=== PATIENT | female | born 1990 | race Caucasian/White ===

== ENCOUNTER 2016-05-18 17:40 | Inpatient (IN) ==
--- NOTE | 2016-05-18 18:09 | Emergency Department Note ---
Disposition Clinical Impression: Cellulitis Qualifiers: Site of cellulitis: buttock Qualified Code(s): L03.317 - Cellulitis of buttock Disposition: Admitted As Inpatient Condition: Good Referrals: NO,PCP [Primary Care Provider] - Forms: ED Satisfaction Letter Time of Disposition: 20:24 Back Pain HPI - General Chief Complaint: ED Back Pain/Injury Stated Complaint: Pain in tailbone Time Seen by Provider: 05/18/16 17:59 Source: patient, family Mode of arrival: ambulatory Limitations: no limitations Nursing Notes Reviewed: Yes Vital Signs Reviewed: Yes - History of Present Illness HPI Narrative: 25-year-old female comes in with coccyx region pain without injury. States because last couple of days. Chills or fevers. Pt Subjective Complaint: back pain Onset (ago): day(s) Duration: constant Similar Symptoms Previously: No Location: sacrum (6 region) Pain Severity: moderate Quality: aching Radiation: none Improves with: none Worsens with: movement, other (Palpation) - Related Data Allergies Allergy/AdvReac Type Severity Reaction Status Date / Time No Known Allergies Allergy Verified 05/18/16 17:42 Constitutional: Denies: fever, chills, weakness, weight change Eyes: Denies: eye pain, eye discharge, vision change ENT ED: Denies: ear pain, throat pain, dental pain, hearing loss, epistaxis, congestion, dysphagia Cardiovascular: Denies: chest pain, palpitations, dyspnea on exertion, edema, syncope Respiratory: Denies: cough, dyspnea, wheezes, hemoptysis, stridor Gastrointestinal: Denies: abdominal pain, nausea, vomiting, diarrhea, constipation, hematemesis, melena, hematochezia Genitourinary: Denies: dysuria, frequency, hematuria, discharge Musculoskeletal: Reports: back pain. Denies: neck pain, arthralgia, myalgia Integumentary: Denies: rash, abrasion, lesions Neurological: Denies: headache, weakness, numbness, paresthesias, confusion, abnormal gait, vertigo Psychiatric: Denies: anxiety, depression, suicidal thoughts, homicidal thoughts , auditory hallucinations, visual hallucinations Endocrine: Denies: fatigue Hematological/Lymphatic: Denies: easy bleeding, easy bruising Allergic/Immunologic: Denies: facial swelling, urticaria Past Medical History - Past Medical History Medical history: Reports: no medical history Psychiatric history: Reports: no psych history - Social History Smoking Status: Never smoker Smokeless Tobacco Status: No Alcohol use: Reports: none Drug use: Reports: none Physical Exam - General Limitations: no limitations General appearance: alert, in no apparent distress - Head Head exam: atraumatic, normocephalic, normal inspection - Eye Eye exam: Present: normal appearance, PERRL, EOMI - ENT ENT exam: normal exam, normal oropharynx, mucous membranes moist - Neck Neck exam: Present: normal inspection, full ROM, trachea midline - Chest Chest inspection: Present: normal inspection, symmetric chest wall rise - Respiratory Respiratory exam: Present: normal lung sounds bilaterally - Cardiovascular Cardiovascular exam: Present: regular rate, normal rhythm, normal heart sounds - Abdominal Exam Abdominal exam: Present: soft, Non-Tender. Absent: tenderness, distention, guarding, rebound, rigidity - Rectal Exam Service Learning Coordinator present during exam: Yes Rectal exam: Present: tenderness (Pilonidal region with no redness and no palpable fluctuance) - Extremities Exam Extremities exam: Present: normal inspection, full ROM. Absent: tenderness, pedal edema - Expanded Lower Extremity Exam Neurovascular/Tendon exam: Absent: motor deficit, sensory deficit, tendon deficit Gait: observed and normal - Back Exam Back exam: Present: normal inspection, full ROM. Absent: tenderness - Neurological Exam Neurological exam: Present: alert, oriented X3 - Psychiatric Psychiatric exam: Present: normal affect, normal mood - Skin Skin exam: Present: warm, dry, intact, normal color Course - Consultations Consultation #1: Discussed with , IV antibiotics and to the hospitalist. Time: 20:26 Consultation #2: Discussed with Dr. Aceves, admit. Time: 20:27 Vital Signs Temperature 98.4 F 05/18/16 17:43 Pulse Rate 112 05/18/16 17:43 Respiratory Rate 18 05/18/16 17:43 Blood Pressure 144/90 05/18/16 17:43 O2 Sat by Pulse Oximetry 99 05/18/16 17:43 Temperature 98.4 F 05/18/16 17:43 Pulse Rate 112 05/18/16 17:43 Respiratory Rate 18 05/18/16 17:43 Blood Pressure 144/90 05/18/16 17:43 O2 Sat by Pulse Oximetry 99 05/18/16 17:43 Back Pain/Injury - Lab Data Result diagrams: 05/18/16 18:17 05/18/16 18:17 Lab Results 05/18/16 05/18/16 05/18/16 Range/Units 18:17 18:17 18:17 WBC 13.9 H (4.3-11.1) K/mcL RBC 4.48 (3.82-4.97) M/mcL Hgb 13.2 (11.5-15.4) g/dL Hct 39.3 (35.3-44.9) % MCV 87.7 (83.0-100.0) fL MCH 29.5 (28.0-33.3) pg MCHC 33.6 (31.6-35.5) g/dL RDW 11.8 (11.5-14.5) % Plt Count 276 (140-400) K/mcL MPV 10.6 (9.4-12.4) fL Immature Gran % 0.3 (0-4) % Seg Neutrophils % 75.2 % Lymphocytes % 14.4 % Monocytes % 9.6 % Eosinophils % 0.3 % Basophils % 0.2 % Neutrophils # 10.4 H (1.6-8.9) K/mcL Lymphocytes # 2.0 (0.6-4.6) K/mcL Monocytes # 1.3 (0.0-1.3) K/mcL Eosinophils # 0.0 (0.0-0.6) K/mcL Basophils # 0.0 (0.0-0.2) K/mcL Sodium 141 (136-145) mEq/L Potassium 4.1 (3.5-4.5) mEq/L Chloride 107 (98-109) mEq/L Carbon Dioxide 23 (19-29) mEq/L BUN 17 (7-20) mg/dL Creatinine 0.69 (0.57-1.11) mg/dL Est GFR ( Amer) > 60 (> 60) Est GFR (Non-Af Amer) > 60 (> 60) BUN/Creatinine Ratio 25 (6-26) Glucose 108 H (70-99) mg/dL Calculated Osmolality 294 (280-300) Calcium 9.6 (8.6-10.8) mg/dL Serum , Qual Negative (Negative) - Radiology Data Radiology results reviewed: Yes I reviewed the patient's radiology results. Pelvis CT 05/18/16 18:04 IMPRESSION: 6.6 x 1.7 x 1.3 cm phlegmonous collection within the deep soft tissues extending from the superior margin of the gluteal cleft to the inferior tip of the coccyx. This could represent a developing deep decubitus abscess. There is no definite osseous destruction or lucency to suggest osteomyelitis. However, if osteomyelitis remains of clinical concern, suggest more detailed characterization with a follow-up sacral MRI without and with contrast. D/ / Shaw Jalloh MD / Shaw Jalloh MD Interpreting Provider: Shaw Jalloh MD
[2016-05-18 18:31] LABS: Basophils % 0.2 %; Eosinophils % 0.3 %; Hematocrit 39.3 % (35.3-44.9); Hemoglobin 13.2 g/dL (11.5-15.4); Immature Granulocytes % 0.3 % (0-4); Lymphocytes % 14.4 %; Mean Corpuscular HGB Conc 33.6 g/dL (31.6-35.5); Mean Corpuscular Hemoglobin 29.5 pg (28.0-33.3); Mean Corpuscular Volume 87.7 fL (83.0-100.0); Mean Platelet Volume 10.6 fL (9.4-12.4); Monocytes # 1.3 K/mcL (0.0-1.3); Monocytes % 9.6 %; Neutrophils # 10.4 K/mcL (1.6-8.9); Platelet Count 276 K/mcL (140-400); Red Blood Count 4.48 M/mcL (3.82-4.97); Red Cell Distribution Width 11.8 % (11.5-14.5); Segmented Neutrophils % 75.2 %
[2016-05-18 18:43] LABS: BUN/Creatinine Ratio 25 (6-26); Blood Urea Nitrogen 17 mg/dL (7-20); Calcium 9.6 mg/dL (8.6-10.8); Carbon Dioxide 23 mEq/L (19-29); Chloride 107 mEq/L (98-109); Glucose 108 mg/dL (70-99); Osmolality,Calculated 294 (280-300); Potassium 4.1 mEq/L (3.5-4.5); Sodium 141 mEq/L (136-145); eGFR For African Americans > 60 (> 60); eGFR For Non-African Americans > 60 (> 60)
[2016-05-18] MEDS ORDERED: Piperacillin/Tazobactam 3.375 GM in D5% in Water (Mini-Bag+) 100 ML IVPB ONE (20:22)
[2016-05-18] MEDS ORDERED: Vancomycin 1,000 MG in D5% in Water 250 ML IVPB ONE (20:22)
[2016-05-18] MEDS ORDERED: Ondansetron 4 MG/2 ML VIAL IVP ONE (20:26)
[2016-05-18] MEDS ORDERED: *HR* HYDROmorphone (PF) 1 MG/ML SYRINGE IVP ONE (20:26)
[2016-05-19] MEDS: 0.9 % Sodium Chloride 1,000 ML IVC SCH ×2 (00:05→15:42)
[2016-05-19] MEDS ORDERED: *HR* HYDROmorphone (PF) 1 MG/ML SYRINGE IVP ONE (01:38)
--- NOTE | 2016-05-19 03:28 | Internal Med History&Physical ---
<Devyn Hoover - Last Filed: 05/19/16 03:35> Date of Encounter: 05/19/16 Time of Encounter: 03:00 Assessment and Plan (1) Abscess Current visit: Yes Status: Acute Phlegmous collection of fluid found in the deep soft tissues that was suggestive for abscess, overlying this area is an area of erythema and warmth. Patient denies precipitating cause of potential abscess. Patient does report significant amount of pain. Patient has been afebrile since admission, not tachypneic, slightly elevated white blood count of 13.9, and tachycardia is likely due to patient pain. She does have source of infection, with attribution of patient tachycardia to pain she is likely not septic. We will continue empiric antibiotics of Zosyn and vancomycin Consults Gen. surgery for assistance in management in patient potential abscess Pain control with acetaminophen, Toradol, Dilaudid Tylenol for potential fever Zofran for nausea Make patient nothing by mouth until assessment surgery Maintenance fluid 100 mL an hour (2) Cellulitis Current visit: Yes Status: Acute Area of erythema and warmth overlying area of pain. CT examination of her pelvis demonstrated fluid collection deep to area of cellulitis. Plan as above Qualifiers: Site of cellulitis: buttock Qualified Code(s): L03.317 - Cellulitis of buttock (3) DVT prophylaxis Current visit: Yes Status: Acute Encouraged patient ambulation Internal Medicine - H&P: HPI Chief complaint: Painful area on buttocks Admitted From: Home Plans for Post Hospital Care: Home History of present illness: Ms. Lopez is a 25 year old female with no significant medical history who presents to [facility] because of continued and worsening pain in her coccyx region. She reports that the discomfort began last Sunday (05/14/16) and began as a slight discomfort in her gluteal cleft in the coccyx region. She said she woke up in pain, she states she has never had anything like this before it without pain medication since 11/28 in severity. She states in the last week it has been waking her from sleep, preventing her from getting a good night sleep. She denies any particular precipitating factor, but does state that she has recently increased her amount of exercise. She states that she has been taking up to 600 mg ibuprofen 8 times daily in the last week in order to help her control pain, but she came in because she was no longer able to. She states the pain is exacerbated by any pressure put on the area, sitting, lying down, or touch. She denies systemic symptoms denying fever/chills, and reporting the only nausea she has his episodes of pain. She denies diaphoresis, denies shortness of breath, denies abdominal pain, denies pain with bowel movements. Past Med Surg Social Fam HX - Past Medical History Medical history: no medical history Psychiatric history: no psych history - Past Surgical History Surgical History: non-contributory (Tonsils and adenoids removed) - Social History Smoking Status: Never smoker Smokeless Tobacco Status: No Alcohol use: none Drug use: none - Family History Mother Living Status: Still Living Hx Family Musculoskeletal Disorders: Yes (Knee Problems) Sister Hx Family Cancer: Yes (Ovarian) Paternal Hx Family Endocrine Disorder: Yes (Diabetes mellitus) Internal Medicine - H&P: Meds No Known Home Drugs 05/18/16 [History] Allergies No Known Allergies Allergy (Verified 05/18/16 17:42) - Constitutional Constitutional: no chills, no fever(s), no weakness - EENT Eyes: no change in vision, no loss of vision - Cardiovascular Cardiovascular ROS IM: no chest pain, no diaphoresis, no dyspnea, no lightheadedness, no palpitations, no syncope - Respiratory Respiratory: no cough, no dyspnea, no wheezing, no excessive phlegm production - Gastrointestinal Gastrointestinal: no abdominal pain, no constipation, no diarrhea, no hematemesis, no hematochezia, no melena, no nausea, no vomiting - Genitourinary Genitourinary: no dysuria, no hematuria - Musculoskeletal Musculoskeletal ROS IM: no numbness, no tingling - Integumentary Integumentary IM: as per HPI, erythema, no rash, no unusual bruising - Neurological Neurological ROS: no confusion, no convulsions, no focal weakness, no numbness, no tingling, no tremor(s) - Constitutional Vitals: Temp Pulse Resp BP Pulse Ox 99.1 F 118 15 111/61 100 05/19/16 00:59 05/19/16 00:59 05/19/16 00:59 05/19/16 00:59 05/19/16 00:59 Exam: General: Cooperative, pleasant, no acute distress, alert and oriented 3, answers questions appropriately Head: Normocephalic, atraumatic Eye: Conjunctiva pink, sclera anicteric, EOMI, PERRL Neck: Supple, trachea midline, mucosa moist Respiratory: No accessory muscle usage, clear to auscultation bilaterally, no wheezes/rhonchi/rales appreciated Cardiovascular: Tachycardia, S1 and S2 present, no murmurs/rubs/gallops/clicks appreciated GI/abdominal: Nondistended, nontender, soft, normal bowel sounds, no peritoneal signs Extremities: No calf tenderness, noncyanotic, no pedal edema appreciated, warm, lower extremity pulses palpable and symmetrical, area of erythema noted in superior portion of patient gluteal cleft, no fluid collection appreciated, no fluctuance palpated, no masses or areas of swelling identified Neurological: Alert and oriented 3, no facial droop, no focal deficits Skin: Dry, intact, normal color Internal Med - H&P Results - Labs CBC & Chem 7: 05/18/16 18:17 05/18/16 18:17 - Impressions Impressions Pelvis CT 05/18/16 18:04 IMPRESSION: 6.6 x 1.7 x 1.3 cm phlegmonous collection within the deep soft tissues extending from the superior margin of the gluteal cleft to the inferior tip of the coccyx. This could represent a developing deep decubitus abscess. There is no definite osseous destruction or lucency to suggest osteomyelitis. However, if osteomyelitis remains of clinical concern, suggest more detailed characterization with a follow-up sacral MRI without and with contrast. D/ / 05/18/2016 20:14:59 Shaw Jalloh MD / Gretchen Lopez Interpreting Provider: Shaw Jalloh MD <Moe Cunningham - Last Filed: 05/19/16 04:55> Date of Encounter: 05/19/16 Internal Medicine - H&P: HPI History of present illness: Ms. Lopez is a 25 year old female All Systems PM: A 10-system review of systems was performed and is negative for pertinent findings except as documented above in the HPI. - Constitutional Vitals: Temp Pulse Resp BP Pulse Ox 98.4 F 101 17 115/67 96 05/19/16 04:27 05/19/16 04:27 05/19/16 04:27 05/19/16 04:27 05/19/16 04:27 Internal Med - H&P Results - Labs CBC & Chem 7: 05/18/16 18:17 05/18/16 18:17 - Attending Attestation I examined this patient and my medical decision-making was reviewed with the SEED CLEANING MANAGER/PA/Advanced Practice Nurse/Resident Physician. I agree with the documented findings, disposition and treatment plan as described except to the extent set forth below. Agree with DR. Hoover. Cellulitis and abscess in a young female patient otherwise without comorbidities. continue broad spectrum antibiotics. Evaluation by surgical team. D/W patient and her .
[2016-05-19] MEDS ORDERED: Ketorolac 30 MG/ML VIAL IVP PRN (03:30)
[2016-05-19] MEDS ORDERED: Acetaminophen 325 MG TABLET PO PRN (03:30)
[2016-05-19] MEDS ORDERED: Naloxone 0.4 MG/ML INJ IVP PRN (03:30)
[2016-05-19] MEDS ORDERED: Ondansetron 4 MG/2 ML VIAL IVP PRN (03:30)
[2016-05-19] MEDS ORDERED: *HR* HYDROmorphone (PF) 1 MG/ML SYRINGE IVP PRN (03:30)
[2016-05-19] MEDS ORDERED: Melatonin 3 MG TABLET PO PRN (03:35)
[2016-05-19] MEDS ORDERED: Vancomycin 1,500 MG in D5% in Water 250 ML IVPB SCH ×2 (05:00→06:00)
[2016-05-19 06:03] LABS: Basophils % 0.2 %; Eosinophils % 0.1 %; Immature Granulocytes % 0.5 % (0-4); Lymphocytes # 1.3 K/mcL (0.6-4.6); Lymphocytes % 10.1 %; Mean Corpuscular HGB Conc 33.8 g/dL (31.6-35.5); Mean Corpuscular Hemoglobin 29.3 pg (28.0-33.3); Mean Corpuscular Volume 86.5 fL (83.0-100.0); Mean Platelet Volume 10.7 fL (9.4-12.4); Monocytes # 1.3 K/mcL (0.0-1.3); Monocytes % 10.2 %; Neutrophils # 9.9 K/mcL (1.6-8.9); Platelet Count 215 K/mcL (140-400); Red Blood Count 3.93 M/mcL (3.82-4.97); Red Cell Distribution Width 11.9 % (11.5-14.5); Segmented Neutrophils % 78.9 %
[2016-05-19 06:04] LABS: Hemoglobin 11.5 g/dL (11.5-15.4)
[2016-05-19 06:14] LABS: BUN/Creatinine Ratio 16 (6-26); Blood Urea Nitrogen 12 mg/dL (7-20); Calcium 8.8 mg/dL (8.6-10.8); Carbon Dioxide 25 mEq/L (19-29); Chloride 104 mEq/L (98-109); Glucose 109 mg/dL (70-99); Osmolality,Calculated 282 (280-300); Potassium 3.6 mEq/L (3.5-4.5); Sodium 136 mEq/L (136-145); eGFR For African Americans > 60 (> 60); eGFR For Non-African Americans > 60 (> 60)
[2016-05-19] MEDS: Piperacillin/Tazobactam 3.375 GM in D5% in Water (Mini-Bag+) 100 ML IVPB SCH ×3 (09:15→23:55)
--- NOTE | 2016-05-19 09:49 | General Surgery Consult Note ---
<Bob Lopez - Last Filed: 05/19/16 10:12> Date of Encounter: 05/19/16 Time of Encounter: 09:47 Assessment and Plan (1) Phlegmon Status: Acute 6.6 x 1.7 x 1.3 cm phlegmonous collection within the deep soft tissues extending from the superior margin of the gluteal cleft to the inferior tip of the coccyx. She is afebrile and has a wbc of 12.6. The area is tender, however there is no fluid collection or drainage. Her pain is significantly decreased since beginning IV antibiotics yesterday. No surgical intervention at this time. Recommend antibiotic therapy. Elva History of Present Illness Consult date: 05/18/16 Reason for consult: other (cellulitis) Requesting physician: Cachorro Jerome History of present illness: Ms. Lopez is a 25 year old female with no significant medical history who presents to [facility] because of continued and worsening pain in her coccyx region. She started to feel some discomfort about 3 or 4 days ago. There was no initial trauma to the area. It is slightly raised and red, but there is no drainage or fluid collection present. Since beginning IV antibiotics yesterday she states the pain is much better. CT revealed phlegmon, no discrete abscess. No n/v/d, chills, fever, rigors. Past Med Surg Social Fam HX - Past Medical History Medical history: no medical history Psychiatric history: no psych history - Past Surgical History Surgical History: non-contributory (Tonsils and adenoids removed) - Social History Smoking Status: Never smoker Smokeless Tobacco Status: No Alcohol use: none Drug use: none - Family History Mother Living Status: Still Living Hx Family Musculoskeletal Disorders: Yes (Knee Problems) Sister Hx Family Cancer: Yes (Ovarian) Paternal Hx Family Endocrine Disorder: Yes (Diabetes mellitus) Medications and Allergies Amoxicillin/Clavulanate [Augmentin] 875 mg PO BIDWM #20 tablet 05/20/16 [Rx] Ibuprofen [Motrin] 600 mg PO Q8HR PRN #20 tab 05/20/16 [Rx] Allergies No Known Allergies Allergy (Verified 05/18/16 17:42) Review of Systems All systems PM: A 10-system review of systems was performed and is negative for pertinent findings except as documented above in the HPI. General Surgery Exam Initial Vital Signs Temp Pulse Resp BP Pulse Ox 98.4 F 112 18 144/90 99 05/18/16 17:43 05/18/16 17:43 05/18/16 17:43 05/18/16 17:43 05/18/16 17:43 - General physical appearance well developed, well nourished, no distress - Neck trachea midline - Respiratory normal expansion, clear to auscultation - Cardiovascular Cardiovascular exam: Present: RRR - Abdomen Abdomen general surgery: Present: bowel sounds present, soft, non tender - Integumentary Integumentary general surgery: Present: warm and dry, other (small erythema/ tenderness in superior gluteal folds) - Neurologic Present: CN 2-12 grossly intact - Psychiatric Psychiatric general surgery: Present: A&Ox3 Exam Initial Vital Signs Temp Pulse Resp BP Pulse Ox 98.4 F 112 18 144/90 99 05/18/16 17:43 05/18/16 17:43 05/18/16 17:43 05/18/16 17:43 05/18/16 17:43 Results - Labs 05/19/16 05:36 05/19/16 05:36 Abnormal lab results WBC 12.6 K/mcL (4.3-11.1) H 05/19/16 05:36 Hct 34.0 % (35.3-44.9) L 05/19/16 05:36 Neutrophils # 9.9 K/mcL (1.6-8.9) H 05/19/16 05:36 Glucose 109 mg/dL (70-99) H 05/19/16 05:36 POC Glucose 126 (58-89) H 05/19/16 07:33 All other labs normal. Consult Discharge Plan - Plan Instructions: Ibuprofen (By mouth), Amoxicillin/Clavulanate Potassium (By mouth ), Cellulitis (DC) Additional Instructions: Return to ED if you develop worsening pain, fever, chills or swelling Referrals: Suleman Faust MD [Partnered Physician] - (call Sunday to be seen potentially Wed by Govind or Kevin by Tiffany Herbert) Breanna Gao LEASING COORDINATOR [Advanced Practice Nurse] - 05/24/16 8:00 am (Please bring your photo Id, insurance card if you have one. Any medications you are on and the new patient packet you will receive in the mail. If you are self pay, you will need to bring $125 with you the day of the appointment. Thank you) Prescriptions: Ibuprofen [Motrin] 600 mg PO Q8HR PRN #20 tab PRN Reason: Moderate Pain Amoxicillin/Clavulanate [Augmentin] 875 mg PO BIDWM #20 tablet <Suleman Faust - Last Filed: 05/22/16 16:47> Date of Encounter: 05/19/16 Time of Encounter: 16:00 Review of Systems All systems PM: A 10-system review of systems was performed and is negative for pertinent findings except as documented above in the HPI. General Surgery Exam Initial Vital Signs Temp Pulse Resp BP Pulse Ox 98.4 F 112 18 144/90 99 05/18/16 17:43 05/18/16 17:43 05/18/16 17:43 05/18/16 17:43 05/18/16 17:43 Exam Initial Vital Signs Temp Pulse Resp BP Pulse Ox 98.4 F 112 18 144/90 99 05/18/16 17:43 05/18/16 17:43 05/18/16 17:43 05/18/16 17:43 05/18/16 17:43 Results - Labs 05/20/16 08:10 05/19/16 05:36 Abnormal lab results RBC 3.61 M/mcL (3.82-4.97) L 05/20/16 08:10 Hgb 10.4 g/dL (11.5-15.4) L 05/20/16 08:10 Hct 31.9 % (35.3-44.9) L 05/20/16 08:10 Glucose 109 mg/dL (70-99) H 05/19/16 05:36 POC Glucose 126 (58-89) H 05/19/16 07:33 All other labs normal. - Attending Attestation I examined this patient and my medical decision-making was reviewed with the GREASE REFINING SUPERVISOR/PA/Advanced Practice Nurse/Resident Physician. I agree with the documented findings, disposition and treatment plan as described except to the extent set forth below. The patient is seen and evaluated. There is no clear area of fluctuance for incision and drainage. At this point I would place her on IV antibiotics and clinically follow the area for development of a discrete abscess. Suleman Faust MD FACS
[2016-05-19] MEDS ORDERED: *HR* OxyCODONE/APAP 5/325 TABLET PO PRN (10:33)
[2016-05-19] MEDS: Ketorolac 30 MG/ML VIAL IVP PRN ×2 (11:20→21:14)
--- NOTE | 2016-05-19 15:26 | Event Note ---
Date of Encounter: 05/19/16 Time of Encounter: 10:25 Patient is feeling better although the lesion remains painful. Well controlled with current pain medication regimen. Continue current IV antibiotics. No drainable abscess noted. Surgery following.
[2016-05-19] MEDS: *HR* OxyCODONE/APAP 5/325 TABLET PO PRN (16:30)
[2016-05-19] MEDS: *HR* Heparin 5,000 UNIT/ML VIAL SQ SCH (18:05)
[2016-05-20] MEDS: *HR* OxyCODONE/APAP 5/325 TABLET PO PRN ×3 (00:27→16:53)
[2016-05-20] MEDS: 0.9 % Sodium Chloride 1,000 ML IVC SCH ×3 (01:50→23:41)
[2016-05-20] MEDS: Ketorolac 30 MG/ML VIAL IVP PRN ×3 (04:18→21:42)
[2016-05-20] MEDS: *HR* Heparin 5,000 UNIT/ML VIAL SQ SCH ×2 (06:05→17:52)
[2016-05-20] MEDS: Piperacillin/Tazobactam 3.375 GM in D5% in Water (Mini-Bag+) 100 ML IVPB SCH ×3 (08:26→23:43)
[2016-05-20 08:54] LABS: Basophils % 0.1 %; Eosinophils % 0.1 %; Hematocrit 31.9 % (35.3-44.9); Hemoglobin 10.4 g/dL (11.5-15.4); Immature Granulocytes % 0.2 % (0-4); Lymphocytes # 1.6 K/mcL (0.6-4.6); Lymphocytes % 16.4 %; Mean Corpuscular HGB Conc 32.6 g/dL (31.6-35.5); Mean Corpuscular Hemoglobin 28.8 pg (28.0-33.3); Mean Corpuscular Volume 88.4 fL (83.0-100.0); Mean Platelet Volume 10.6 fL (9.4-12.4); Monocytes % 10.2 %; Neutrophils # 6.9 K/mcL (1.6-8.9); Platelet Count 173 K/mcL (140-400); Red Blood Count 3.61 M/mcL (3.82-4.97); Red Cell Distribution Width 11.8 % (11.5-14.5)
--- NOTE | 2016-05-20 13:23 | Discharge Summary ---
Date of Encounter: 05/20/16 Time of Encounter: 13:19 - Discharge Diagnosis (1) Cellulitis Priority: Primary Status: Acute Qualifiers: Site of cellulitis: buttock Qualified Code(s): L03.317 - Cellulitis of buttock (2) Phlegmon Priority: Secondary Status: Acute - Discharge Medications Prescriptions: Ibuprofen [Motrin] 600 mg PO Q8HR PRN #20 tab PRN Reason: Moderate Pain Amoxicillin/Clavulanate [Augmentin] 875 mg PO BIDWM #20 tablet Home Medications: Amoxicillin/Clavulanate [Augmentin] 875 mg PO BIDWM #20 tablet 05/20/16 [Rx] Ibuprofen [Motrin] 600 mg PO Q8HR PRN #20 tab 05/20/16 [Rx] Allergies/Adverse Reactions: Allergies No Known Allergies Allergy (Verified 05/18/16 17:42) Date of admission: 05/19/16 06:06 Primary care physician: PCP NO Consults: 05/19/16 09:35 Consult to Technical Sales Representative [CONS] Routine Reason for SW Consult: self pay Discharging clinician: Samantha Langston Anticipated date of discharge: 05/20/16 - Patient Status Disposition: Home, Self-Care Condition: Good Overall status at discharge: patient is progressing back to baseline - Discharge Instructions Instructions: Cellulitis (DC) Follow Up With: Breanna Gao CNP [Advanced Practice Nurse] - 05/24/16 8:00 am (Please bring your photo Id, insurance card if you have one. Any medications you are on and the new patient packet you will receive in the mail. If you are self pay, you will need to bring $125 with you the day of the appointment. Thank you) - Diet and Activity Activity: increase activity as tolerated Diet: regular diet Hospital course: Ms. Lopez is a 25 year old female - Time Spent with Patient Total time spent providing and/or coordinating discharge services: Less than 30 minutes (25 min) - Constitutional Vitals: Temp Pulse Resp BP Pulse Ox 97.9 F 81 14 105/67 95 05/20/16 10:48 05/20/16 10:48 05/20/16 10:48 05/20/16 10:48 05/20/16 10:48 General appearance: Present: cooperative, A&O X 3, answers questions appropriately - Respiratory Respiratory exam: Present: CTAB. Absent: accessory muscle use, rales, rhonchi, wheezes - Cardiovascular Cardiovascular exam: Present: RRR, +S1, +S2. Absent: diastolic murmur, gallop, rubs, systolic murmur - GI/Abdominal GI/Abdominal exam: Present: normal bowel sounds, soft, no peritoneal signs. Absent: distended, tenderness - Skin Skin exam: Present: dry, erythema (Erythema and swelling in the gluteal cleft resolving. less tender to palpation), intact
--- NOTE | 2016-05-20 14:12 | General Surgery Progress Note ---
Date of Encounter: 05/20/16 Time of Encounter: 12:30 - Assessment and Plan (1) Cellulitis Current Visit: Yes Status: Acute gluteal cleft cellulitis, continue abx patient reports its getting better Dr Faust requested repeat CT of area tomorrow am and as long as no abscess developing will start DC planning with home po antibitics Qualifiers: Site of cellulitis: other site Qualified Code(s): L03.818 - Cellulitis of other sites Subjective Patient reports: still having pain, pain is less, tolerating a regular diet, flatus, no bowel movement Objective Vital Signs - Last 8 Hours Temp Pulse Resp BP Pulse Ox 05/20/16 10:48 97.9 F 81 14 105/67 95 05/20/16 07:01 97.4 F L 91 16 109/69 97 Intake and Output 05/19/16 05/20/16 05/20/16 23:59 07:59 15:59 Intake Total 100 / 100 1100 / 1100 1460 / 1460 Output Total 0 / 0 400 / 400 300 / 300 Balance 100 / 100 700 / 700 1160 / 1160 Intake: IV Fluids 100 / 100 1100 / 1100 1100 / 1100 0.9 % Sodium Chloride 1, 1000 / 1000 1000 / 1000 000 ML @ 100 mls/hr IVC . Q10H YAK[facility] Rx#:[id number] Zosyn 3.375 GM In 100 / 100 100 / 100 100 / 100 Dextrose 5% (Minibag+) 100 ML 100 ML @ 25 mls/hr IVPB Q8HR YAKELIN Rx#: [id number] Oral 0 / 0 0 / 0 360 / 360 Output: Urine 0 / 0 400 / 400 300 / 300 Other: Meal Lunch Percent of Meal Consumed 75% Weight 104 kg Patient Weight 05/20/16 23:59 Weight 104 kg - General physical appearance well developed, well nourished, no distress, no pain - Eyes PERRL, normal ocular movement - ENT normal mucosa, normocephalic - Neck Neck exam: trachea midline - Respiratory normal expansion - Cardiovascular Cardiovascular exam: Present: RRR - Integumentary no rash, no growths - Neurologic CN 2-12 grossly intact - Musculoskeletal normal gait, normal posture - Psychiatric oriented to time, memory intact - Additional Exam gluteal cleft area - very minimal erythema, is some tenderness to palpation nothing significant, no fluctuance - Labs 05/20/16 08:10 05/19/16 05:36 Short CBC 05/20/16 Range/Units 08:10 WBC 9.4 (4.3-11.1) K/mcL Hgb 10.4 L (11.5-15.4) g/dL Hct 31.9 L (35.3-44.9) % Plt Count 173 (140-400) K/mcL Neutrophils # 6.9 (1.6-8.9) K/mcL Vital Signs Temp Pulse Resp BP Pulse Ox 05/20/16 10:48 97.9 F 81 14 105/67 95 05/20/16 07:01 97.4 F L 91 16 109/69 97 05/20/16 00:14 100.3 F H 101 16 101/56 99 05/19/16 19:44 98.6 F 91 14 103/63 99 05/19/16 15:04 98.4 F 92 16 108/67 98 Intake and Output 05/19/16 05/20/16 05/20/16 23:59 07:59 15:59 Intake Total 100 / 100 1100 / 1100 1460 / 1460 Output Total 0 / 0 400 / 400 300 / 300 Balance 100 / 100 700 / 700 1160 / 1160 Intake: IV Fluids 100 / 100 1100 / 1100 1100 / 1100 0.9 % Sodium Chloride 1, 1000 / 1000 1000 / 1000 000 ML @ 100 mls/hr IVC . Q10H YAK[facility]IN Rx#:[id number] Zosyn 3.375 GM In 100 / 100 100 / 100 100 / 100 Dextrose 5% (Minibag+) 100 ML 100 ML @ 25 mls/hr IVPB Q8HR YAKELIN Rx#: [id number] Oral 0 / 0 0 / 0 360 / 360 Output: Urine 0 / 0 400 / 400 300 / 300 Other: Meal Lunch Percent of Meal Consumed 75% Weight 104 kg Patient Weight 05/20/16 23:59 Weight 104 kg Consult Discharge Plan - Plan Instructions: Cellulitis (DC) Referrals: Breanna Gao CNP [Advanced Practice Nurse] - 05/24/16 8:00 am (Please bring your photo Id, insurance card if you have one. Any medications you are on and the new patient packet you will receive in the mail. If you are self pay, you will need to bring $125 with you the day of the appointment. Thank you) Suleman Faust MD [Partnered Physician] - (2 week gluteal cleft cellulitis, possible pilonidal) Prescriptions: Ibuprofen [Motrin] 600 mg PO Q8HR PRN #20 tab PRN Reason: Moderate Pain Amoxicillin/Clavulanate [Augmentin] 875 mg PO BIDWM #20 tablet
--- NOTE | 2016-05-20 15:04 | Internal Med Progress Note ---
Date of Encounter: 05/20/16 Time of Encounter: 09:35 - Assessment and plan (1) Cellulitis Current Visit: Yes Status: Acute Assessment and plan: Cellulitis in the gluteal cleft region. Continue current antibiotics. Improving overall. CT scan planned for tomorrow morning. If there is no developing abscess, patient can be discharged On Oral Antibiotics. Qualifiers: Site of cellulitis: other site Qualified Code(s): L03.818 - Cellulitis of other sites (2) Phlegmon Current Visit: Yes Status: Acute - Subjective Interval history: Patient is feeling better today. Pain is improving. No new complaints at this time. No fever or chills or night sweats overnight. - Constitutional Vitals: Temp Pulse Resp BP Pulse Ox 97.8 F 93 16 121/73 100 05/20/16 14:59 05/20/16 14:59 05/20/16 14:59 05/20/16 14:59 05/20/16 14:59 General appearance: Present: cooperative, A&O X 3, no acute distress, answers questions appropriately - Cardiovascular Cardiovascular exam: Present: RRR, +S1, +S2. Absent: diastolic murmur, gallop, rubs, systolic murmur - GI/Abdominal GI/Abdominal exam: Present: normal bowel sounds, soft, no peritoneal signs. Absent: distended, tenderness - Extremities Exam Extremities exam: Present: warm, radial pulses palpable and symetrical. Absent : calf tenderness, cyanotic, pedal edema - Skin Skin exam: Present: dry, erythema (Erythema in the gluteal cleft region improving. Less tender to palpation today.), intact Internal Medicine: Result - Labs CBC & Chem 7: 05/20/16 08:10 05/19/16 05:36 Labs: Short CBC 05/20/16 Range/Units 08:10 WBC 9.4 (4.3-11.1) K/mcL Hgb 10.4 L (11.5-15.4) g/dL Hct 31.9 L (35.3-44.9) % Plt Count 173 (140-400) K/mcL Neutrophils # 6.9 (1.6-8.9) K/mcL Consult Discharge Plan - Plan Instructions: Cellulitis (DC) Referrals: Suleman Faust MD [Partnered Physician] - (2 week gluteal cleft cellulitis, possible pilonidal) Breanna Gao, OPERATIONS LOGISTICS ANALYST [Advanced Practice Nurse] - 05/24/16 8:00 am (Please bring your photo Id, insurance card if you have one. Any medications you are on and the new patient packet you will receive in the mail. If you are self pay, you will need to bring $125 with you the day of the appointment. Thank you) Prescriptions: Ibuprofen [Motrin] 600 mg PO Q8HR PRN #20 tab PRN Reason: Moderate Pain Amoxicillin/Clavulanate [Augmentin] 875 mg PO BIDWM #20 tablet - Attending Attestation This document has been at least partially created by [employer] recognition technology by Dr. Langston. Errors in grammar, wording or other phrases may exist. If errors are found after the documentation is signed, they will be addressed individually in the addendum section of this document when appropriate.
[2016-05-20] MEDS ORDERED: D5% in Water (Mini-Bag+) 100 ML IVPB ONE (16:07)
[2016-05-21] MEDS: *HR* OxyCODONE/APAP 5/325 TABLET PO PRN (04:20)
[2016-05-21] MEDS: *HR* Heparin 5,000 UNIT/ML VIAL SQ SCH (05:51)
[2016-05-21] MEDS: Piperacillin/Tazobactam 3.375 GM in D5% in Water (Mini-Bag+) 100 ML IVPB SCH (07:30)
[2016-05-21] MEDS: 0.9 % Sodium Chloride 1,000 ML IVC SCH (09:59)
[2016-05-21 10:55] VITALS: BP 133/83
--- NOTE | 2016-05-21 12:58 | Discharge Summary ---
Date of Encounter: 05/21/16 Time of Encounter: 12:56 - Discharge Diagnosis (1) Cellulitis Priority: Primary Status: Acute Qualifiers: Site of cellulitis: other site Qualified Code(s): L03.818 - Cellulitis of other sites (2) Phlegmon Priority: Secondary Status: Acute - Discharge Medications Prescriptions: Ibuprofen [Motrin] 600 mg PO Q8HR PRN #20 tab PRN Reason: Moderate Pain Amoxicillin/Clavulanate [Augmentin] 875 mg PO BIDWM #20 tablet Home Medications: Amoxicillin/Clavulanate [Augmentin] 875 mg PO BIDWM #20 tablet 05/20/16 [Rx] Ibuprofen [Motrin] 600 mg PO Q8HR PRN #20 tab 05/20/16 [Rx] Allergies/Adverse Reactions: Allergies No Known Allergies Allergy (Verified 05/18/16 17:42) Procedures/tests Complete & Pending: Procedures Performed prior 72 hours Category Date Time Status CT pelvis w iv no oral [CT] Routine Cat Scan 05/21/16 08:00 Completed Date of admission: 05/19/16 06:06 Primary care physician: PCP NO Consults: 05/19/16 09:35 Consult to [employer] M[employer]er [CONS] Routine Reason for SW Consult: self pay Discharging clinician: Samantha Langston Anticipated date of discharge: 05/21/16 - Patient Status Disposition: Home, Self-Care Condition: Good Functional capacity at discharge: independent ambulation Overall status at discharge: patient is progressing back to baseline - Discharge Instructions Instructions: Ibuprofen (By mouth), Amoxicillin/Clavulanate Potassium (By mouth ), Cellulitis (DC) Follow Up With: Breanna Gao CNP [Advanced Practice Nurse] - 05/24/16 8:00 am (Please bring your photo Id, insurance card if you have one. Any medications you are on and the new patient packet you will receive in the mail. If you are self pay, you will need to bring $125 with you the day of the appointment. Thank you) Suleman Faust MD [Partnered Physician] - (call Sunday to be seen potentially Sun by Govind or by Tiffany Herbert) Additional Instructions: Return to ED if you develop worsening pain, fever, chills or swelling - Diet and Activity Activity: increase activity as tolerated Diet: regular diet Hospital course: Ms. Lopez is a 25 year old female with significant past medical history was admitted with cellulitis in her gluteal cleft region with possible underlying pilonidal cyst. She was treated for this with IV antibiotics. Surgery was consulted. CT scan of the pelvis that was done initially showed cellulitis changes with phlegmatic changes without any abscess. As such no surgery was indicated. With IV antibiotics her symptoms have improved. Repeat CT scan of the pelvis done today shows increase in the size of cellulitis region and in the phlegmon. However no clear abscess identified either. At this time, the options for the patient would be to continue treating with IV antibiotics to the point when an abscess forms which can then be drained. Other option would be to go to the OR and open and packed the wound to prevent spread of infection. However this time patient wishes to go home on oral antibiotics and then follow up in the clinic with surgery for further evaluation. She will be discharged today on Augmentin and will follow up within a week. She has been advised to return to the ER if she develops any fever or chills or any worsening pain swelling or redness in that region. - Time Spent with Patient Total time spent providing and/or coordinating discharge services: Greater than 30 minutes (35 min) - Constitutional Vitals: Temp Pulse Resp BP Pulse Ox 98.5 F 97 16 133/83 96 05/21/16 10:55 05/21/16 10:55 05/21/16 10:55 05/21/16 10:55 05/21/16 10:55 General appearance: Present: cooperative, A&O X 3, no acute distress, answers questions appropriately - Respiratory Respiratory exam: Present: CTAB. Absent: accessory muscle use, rales, rhonchi, wheezes - Cardiovascular Cardiovascular exam: Present: RRR, +S1, +S2. Absent: diastolic murmur, gallop, rubs, systolic murmur - Extremities Exam Extremities exam: Present: warm, radial pulses palpable and symetrical. Absent : calf tenderness, cyanotic, pedal edema - Neurological Exam Neurological exam: Present: alert, oriented X3, no focal deficits. Absent: facial droop, speech deficit - Skin Skin exam: Present: dry, erythema (Erythema involving the gluteal cleft region slightly improved but the skin is very indurated without any fluctuance underneath. Tender to palpation.), intact
[2016-05-21] MEDS ORDERED: Aminoglycoside Consult 1 EACH MC ONE (14:04)
--- NOTE | 2016-05-21 14:17 | General Surgery Progress Note ---
Date of Encounter: 05/21/16 Time of Encounter: 12:30 - Assessment and Plan (1) Cellulitis Status: Acute patient more symptomatic today and had CT pelvis, I discussed that she is developing an abscess but it isnt present currently, discussed staying in hospital on abx which she did not want to do discussed going to OR to open are and pack wound in hopes of stopping progression of infection with continued antibiotics and daily packing to area - patient didnt want to do that. She does want to go home on oral antibiotics and pain control and followup with Dr Faust in office this week. Discussed doing warm compressess to the area, if the area becomes more painful or drains or if she has any concerns to come in to ER. She expressed understanding Qualifiers: Site of cellulitis: other site Qualified Code(s): L03.818 - Cellulitis of other sites Subjective Narrative: patient is having more pain in the area, some more erythema percocets help best with pain no drainage Objective Vital Signs - Last 8 Hours Temp Pulse Resp BP Pulse Ox 05/21/16 10:55 98.5 F 97 16 133/83 96 05/21/16 07:03 98.8 F 101 16 110/58 97 Intake and Output 05/20/16 05/21/16 05/21/16 23:59 07:59 15:59 Intake Total 1090 / 1090 559 / 559 821 / 821 Output Total 350 / 350 850 / 850 425 / 425 Balance 740 / 740 -291 / -291 396 / 396 Intake: IV Fluids 1090 / 1090 559 / 559 541 / 541 0.9 % Sodium Chloride 1, 990 / 990 459 / 459 541 / 541 000 ML @ 100 mls/hr IVC . Q10H [facility] Rx#:[id number] Zosyn 3.375 GM In 100 / 100 100 / 100 Dextrose 5% (Minibag+) 100 ML 100 ML @ 25 mls/hr IVPB Q8HR YAK[facility] Rx#: [id number] Oral 0 / 0 0 / 0 280 / 280 Output: Urine 350 / 350 850 / 850 425 / 425 Other: Meal Dinner Lunch Percent of Meal Consumed 10% 80% # Bowel Movements 0 0 Weight 103.8 kg Patient Weight 05/21/16 23:59 Weight 103.8 kg - General physical appearance well developed, well nourished - Eyes PERRL, normal ocular movement - ENT normal mucosa, normocephalic - Neck Neck exam: trachea midline - Respiratory normal expansion, normal respiratory effort - Cardiovascular Cardiovascular exam: Present: RRR - Rectum other (gluteal cleft more erythematous, more tender, still no fluctuance, nothing draining) - Neurologic CN 2-12 grossly intact - Musculoskeletal normal posture - Psychiatric oriented to time, memory intact - Labs 05/20/16 08:10 05/19/16 05:36 Vital Signs Temp Pulse Resp BP Pulse Ox 05/21/16 10:55 98.5 F 97 16 133/83 96 05/21/16 07:03 98.8 F 101 16 110/58 97 05/21/16 03:51 98.6 F 108 16 111/67 100 05/21/16 00:15 99.5 F 103 14 97/56 96 05/20/16 19:37 98.2 F 95 14 106/61 97 05/20/16 14:59 97.8 F 93 16 121/73 100 Intake and Output 05/20/16 05/21/16 05/21/16 23:59 07:59 15:59 Intake Total 1090 / 1090 559 / 559 821 / 821 Output Total 350 / 350 850 / 850 425 / 425 Balance 740 / 740 -291 / -291 396 / 396 Intake: IV Fluids 1090 / 1090 559 / 559 541 / 541 0.9 % Sodium Chloride 1, 990 / 990 459 / 459 541 / 541 000 ML @ 100 mls/hr IVC . Q10H [facility]AK[facility] Rx#:[id number] Zosyn 3.375 GM In 100 / 100 100 / 100 Dextrose 5% (Minibag+) 100 ML 100 ML @ 25 mls/hr IVPB Q8HR YAK[facility]IN Rx#: [id number] Oral 0 / 0 0 / 0 280 / 280 Output: Urine 350 / 350 850 / 850 425 / 425 Other: Meal Dinner Lunch Percent of Meal Consumed 10% 80% # Bowel Movements 0 0 Weight 103.8 kg Patient Weight 05/21/16 23:59 Weight 103.8 kg - Imaging CT scan - pelvis: report reviewed, image reviewed Consult Discharge Plan - Plan Instructions: Ibuprofen (By mouth), Amoxicillin/Clavulanate Potassium (By mouth ), Cellulitis (DC) Additional Instructions: Return to ED if you develop worsening pain, fever, chills or swelling Referrals: Breanna Gao CNP [Advanced Practice Nurse] - 05/24/16 8:00 am (Please bring your photo Id, insurance card if you have one. Any medications you are on and the new patient packet you will receive in the mail. If you are self pay, you will need to bring $125 with you the day of the appointment. Thank you) Suleman Faust MD [Partnered Physician] - (call Sunday to be seen potentially Sun by Govind or by Tiffany Herbert) Prescriptions: Ibuprofen [Motrin] 600 mg PO Q8HR PRN #20 tab PRN Reason: Moderate Pain Amoxicillin/Clavulanate [Augmentin] 875 mg PO BIDWM #20 tablet
== END 2016-05-21 14:05 | disposition home or self-care (01) | DRG 603 ==
LOC: 3ANU 17:40 → EMEROO 17:40 → 3ANU 21:47
PROVIDERS: ADMIT Internal Medicine; ATTEND Internal Medicine